=== PATIENT | female | born 1965 | race Hispanic/Latino ===

== ENCOUNTER 2017-04-25 09:00 | Day surgery (SDC) | payer BC ==
[~2017-04-25] VITALS: Ht 165.1 cm; Wt 89.8 kg
--- OUTSIDE RECORDS SUMMARY | ~2017-04-25 | XMS ---
Demographics + + + | Address | [address] | | | [place] [address] | + + + | Preferred Language | Unknown | + + + | Marital Status | Unknown | + + + | Synagogue Affiliation | Unknown | + + + | Race | Unknown | + + + | Ethnic Group | Unknown | + + + Author + + + | Author | [facility] | + + + | Organization | [facility] | + + + | Address | 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 | [id number] | | | lipomatous | | | | | | | | neoplasm | | | | | | | | of skin | | | | | | | | and | | | | | | | | subcutaneo | | | | | | | | us tissue | | | | | | | | of trunk | | | | | | +---------+ + + +--------+ + + | Problem | Abnormal | | R93.5 | | Active | [id number] | | | findings | | | | | | | | on | | | | | | | | diagnostic | | | | | | | | imaging | | | | | | | | of other | | | | | | | | abdominal | | | | | | | | regions, | | | | | | | | including | | | | | | | | retroperit | | | | | | | | oneum | | | | | | +---------+ + + +--------+ + + | Problem | Chronic | | N94.9 | | Active | [id number] | | | pelvic | | | | | | | | pain in | | | | | | | | female | | | | | | +---------+ + + +--------+ + + | Problem | Perimenopa | | N95.1 | | Active | [id number] | | | usal | | | | | [address] | +---------+ + + +--------+ + + ALLERGIES Unknown Allergies SOCIAL HISTORY No smoking Hx information available PLAN OF CARE VITAL SIGNS MEDICATIONS Unknown Medications RESULTS No Results PROCEDURES No Known procedures IMMUNIZATIONS No Known Immunizations"
--- OUTSIDE RECORDS SUMMARY | ~2017-04-25 | XMS ---
Demographics + + + | Address | [address] | | | [place] [address] | + + + | Preferred Language | Unknown | + + + | Marital Status | Unknown | + + + | Nondenominational Affiliation | Unknown | + + + | Race | Unknown | + + + | Ethnic Group | Unknown | + + + Author + + + | Author | [facility] | + + + | Organization | [facility] | + + + | Address | [address] | | | [place] [address] | + + + | Phone | [phone] [phone] | + + + Care Team Providers + + + + | Care Exerciser Horse Name | Role | Phone | + + + + Unavailable | Unavailable | + + + + PROBLEMS + + + + + + + + | Type | Condition | ICD9-CM | [id number] | Onset | Condition | SNOMED | | | | Code | Code | Dates | Status | Code | + + + + + + + + | Problem | Benign | | D17.1 | | Active | [id number] | | | lipomatous | | | [...] trunk | | | | | | + + + + + + + + | Problem | Abnormal | | R93.5 | | Active | [id number] | | | findings | | | [...] oneum | | | | | | + + + + + + + + | Assessment | Chronic | | N94.9 | 20 March, | Active | [id number] | | | pelvic | | | 2017 | | | | | pain in | | | | | | | | female | | | | | | + + + + + + + + | Problem | Chronic | | N94.9 | | Active | [id number] | | | pelvic | | | | | | | | pain in | | | | | | | | female | | | | | | + + + + + + + + | Problem | Perimenopa | | N95.1 | | Active | [id number] | | | usal | | | | | [address] | + + + + + + + + ALLERGIES Unknown Allergies SOCIAL HISTORY No smoking Hx information available PLAN OF CARE + +---------+ | Activity | Details | + +---------+ +---+ | | +---+ + + + | Pending Test | CT Scan : Abdomen and Pelvis with contrast | | | | + + + | | ,Reason: | + + + VITAL SIGNS MEDICATIONS Unknown Medications RESULTS No Results PROCEDURES No Known procedures IMMUNIZATIONS No Known Immunizations"
--- OUTSIDE RECORDS SUMMARY | ~2017-04-25 | XMS ---
Demographics + + + | Address | [address] | | | [place] [address] | + + + | Preferred Language | Unknown | + + + | Marital Status | Unknown | + + + | Quaker Affiliation | Unknown | + + + | Race | Unknown | + + + | Ethnic Group | Unknown | + + + Author + + + | Author | [facility] | + + + | Organization | [facility] | + + + | Address | [address] | | | [place] [address] | + + + | Phone | [phone] [phone] | + + + Care Team Providers + + + + | Care Microfilm Equipment Inspector Name | Role | Phone | + + + + Unavailable | Unavailable | + + + + PROBLEMS + + + + + + + + | Type | Condition | ICD9-CM | [id number] | Onset | Condition | SNOMED | | | | Code | Code | Dates | Status | Code | + + + + + + + + | Problem | Chronic | | N94.9 | | Active | [id number] | | | pelvic | | | | | | | | pain in | | | | | | | | female | | | | | | + + + + + + + + | Problem | Perimenopa | | N95.1 | | Active | [id number] | | | usal | | | | | [address] | + + + + + + + + | Assessment | Chronic | | N94.9 | 18 February, | Active | [id number] | | | pelvic | | | 2017 | | | | | pain in | | | | | | | | female | | | | | | + + + + + + + + | Assessment | Bladder | R39.89 | | 18 February, | Active | [id number] | | | pain | | | 2017 | | | + + + + + + + + ALLERGIES + + + + +---------+ | Substance | Reaction | Event Type | Date | Status | + + + + +---------+ | N.K.D.A. | Unknown | Non Drug | February, | Unknown | | | | Allergy | | | + + + + +---------+ SOCIAL HISTORY No smoking Hx information available PLAN OF CARE VITAL SIGNS + + + + | Height | 65 in | 2017-03-13 | + + + + | Weight | 198 lbs | 2017-03-13 | + + + + | BMI | 32.95 kg/m2 | 2017-03-13 | + + + + | Heart Rate | 78 /min | 2017-03-13 | + + + + | Blood pressure systolic | 146 mm Hg | 2017-03-13 | + + + + | Blood pressure diastolic | 63 mm Hg | 2017-03-13 | + + + + MEDICATIONS Unknown Medications RESULTS + +--------+------+ + | Name | Result | Date | Reference Range | + +--------+------+ + | Ultrasound: Pelvic | | | | + +--------+------+ + PROCEDURES + + + + + | Procedure | Date Ordered | Related Diagnosis | Body Site | + + + + + | SOFTWARE BUILD ENGINEER Level IV | March 13, 2017 | | | | Extended | | | | + + + + + | [facility] MED/CURRENT | March 13, 2017 | | | | MED MERGE | | | | + + + + + | TOBACCO NON-USER | March 13, 2017 | | | + + + + + | DOC MEDS VERIFIED | March 13, 2017 | | | | W/PT OR RE | | | | + + + + + IMMUNIZATIONS No Known Immunizations"
[~2017-04-25 09:00] MED LIST: ADVIL200 M1 PO
--- NOTE | 2017-04-25 14:48 | NUR ---
04/25/17 1448 Therese Burgos 1443 PATIENT ARRIVES TO PACU WITH EYES CLOSED, OCCASIONAL MOAN, OPENS EYES TO PAINFUL STIMULUS, DOES NOT FOLLOW COMMANDS. OXYGEN VIA MASK AT 10 LITERS.
--- NOTE | 2017-04-25 16:43 | NUR ---
1640-PATIENT ASSISTED BACK FROM BATHROOM BY DAUGHTER AND RN. DENIES PAIN TO INCISION REPORTS "FEELS LIKE HEAD IS HEAVY" DENIES NEED FOR MEDICATION. VSS.
--- NOTE | 2017-04-27 13:51 | NUR ---
LE 04/25/17 1030: PT C/O PAIN AT THE IV SIGHT GOING UP THE ARM AND DOWN INTO THE LEFT MIDDLE FINGER. PT REQUESTING THAT THE IV SITE BE MOVED. SEAN MCKEON RESTARTED IV IN RIGHT AC A SALINE BLOCK, THEN REMOVED LEFT FOREARM SITE WHEN RIGHT AC PROVED TO RUNNING SUFFICIENTLY. PT REPORTED THAT PAIN IN THE LEFT FOREARM HAD DISSIPATED AND WAS NO LONGER A PROBLEM.
[2017-06-27] MEDS ORDERED: BIOTIN0.5 GM (13:15)
[2017-07-01] MEDS ORDERED: HYDROCODON-ACE1 EAC8 (06:56)
== END 2017-04-25 17:40 | disposition home or self-care (01) ==
LOC: DS 09:00
PROVIDERS: Colon & Rectal Surgery
PROC: 0JB80ZZ Excision of Abdomen Subcutaneous Tissue and Fascia, Open Approach (ICD-10-PCS; principal; 2017-04-25 10:45)
DX: D17.1 Benign lipomatous neoplasm of skin and subcutaneous tissue of trunk (principal); E65 Localized adiposity; Z98.51 Tubal ligation status; Z90.49 Acquired absence of other specified parts of digestive tract; Z98.890 Other specified postprocedural states
CPT/HCPCS: 00800; J0690; J1100; J1644; J1885; J2250; J2405; J2704; J2765; J3010; J7120